=== PATIENT | female | born 1960 | race Caucasian/White ===

== ENCOUNTER 2017-07-10 10:37 | Inpatient (IN) | payer OTHER ==
[~2017-07-10] VITALS: Ht 162.6 cm; Wt 103.4 kg
[~2017-07-10 10:37] MED LIST: HYDROCHLOROTHIA25 MG PO; IMITREX100 MG PO; INDERAL LA80 MG PO; OMEPRAZOLE40 M1 PO; VITAMIN B-6100 MG PO; VITAMIN E400 UNI6 PO
[2017-07-10 11:13] VITALS: BP 130/70
[2017-07-10 16:54] VITALS: BP 140/67
[2017-07-10 19:20] VITALS: BP 134/74
[2017-07-11] VITALS (7 sets, daily range): BP systolic 108–139; BP diastolic 60–79
[2017-07-11 08:03] LABS: HEMATOCRIT 38.8 % (36.0-46.0); HEMOGLOBIN 12.8 G/DL (11.9-15.5); MCH 28.5 PG (29.0-34.0); MCV 86.4 FL (83-99); PLATELET COUNT 312 K/uL (156-360); RBC DIS.WIDTH-CV 13.9 % (11.8-14.6); RBC DIS.WIDTH-SD 43.8 % (39-53); RED BLOOD COUNT 4.49 M/uL (3.80-5.20); WHITE BLOOD COUNT 17.6 K/uL (4.1-10.2)
[2017-07-11 08:32] LABS: CHLORIDE 96 MEQ/L (99-109); CREATININE 0.6 MG/DL (0.6-1.3); GFR ESTIMATE (CALCULATED) > 59 mL/min/; GLUCOSE 164 mg/dL (70-99); POTASSIUM 4.1 MEQ/L (3.7-5.4); SODIUM 134 MEQ/L (136-147); UREA NITROGEN (BUN) 7 mg/dL (9-23)
[2017-07-12 03:30] VITALS: BP 112/65
[2017-07-12 06:32] LABS: HEMATOCRIT 37.5 % (36.0-46.0); HEMOGLOBIN 12.4 G/DL (11.9-15.5); MCH 29.2 PG (29.0-34.0); MCHC 33.1 G/DL (30.0-36.0); MCV 88.4 FL (83-99); PLATELET COUNT 295 K/uL (156-360); RBC DIS.WIDTH-CV 14.5 % (11.8-14.6); RBC DIS.WIDTH-SD 46.3 % (39-53); RED BLOOD COUNT 4.24 M/uL (3.80-5.20); WHITE BLOOD COUNT 12.5 K/uL (4.1-10.2)
[2017-07-12 06:57] LABS: CHLORIDE 99 MEQ/L (99-109); CREATININE 0.5 MG/DL (0.6-1.3); GFR ESTIMATE (CALCULATED) > 59 mL/min/; SODIUM 136 MEQ/L (136-147); UREA NITROGEN (BUN) 5 mg/dL (9-23)
[2017-07-12 06:58] LABS: GLUCOSE 113 mg/dL (70-99)
[2017-07-12 07:10] VITALS: BP 105/64
[2017-07-12 15:37] VITALS: BP 139/73
[2017-07-12 19:33] VITALS: BP 122/60
[2017-07-12 23:34] VITALS: BP 115/69
[2017-07-13 03:25] VITALS: BP 133/74
[2017-07-13 06:10] LABS: HEMATOCRIT 36.6 % (36.0-46.0); HEMOGLOBIN 11.7 G/DL (11.9-15.5); MCH 28.5 PG (29.0-34.0); MCV 89.3 FL (83-99); RBC DIS.WIDTH-CV 14.7 % (11.8-14.6); RBC DIS.WIDTH-SD 47.9 % (39-53); WHITE BLOOD COUNT 10.8 K/uL (4.1-10.2)
[2017-07-13 06:38] LABS: CHLORIDE 106 MEQ/L (99-109); CREATININE 0.6 MG/DL (0.6-1.3); GFR ESTIMATE (CALCULATED) > 59 mL/min/; GLUCOSE 106 mg/dL (70-99); POTASSIUM 3.7 MEQ/L (3.7-5.4); SODIUM 141 MEQ/L (136-147); UREA NITROGEN (BUN) 7 mg/dL (9-23)
[2017-07-13 06:40] LABS: PLAT.SUFFICIENCY ADEQUATE; PLATELET COUNT 289 K/uL (156-360)
[2017-07-13] MEDS ORDERED: ROXICODONE5 MG PO (08:58)
[2017-07-13] MEDS ORDERED: COLACE100 MG PO (08:58)
[2017-07-13 09:17] VITALS: BP 153/70
== END 2017-07-13 11:24 | disposition home or self-care (01) | DRG 336 ==
LOC: SDC 10:37 → 2EASTP 15:09 → 2SOUTH 15:09 → ENRESERV 15:11 → 2EASTP 16:30 → SDC 17:15 → 2EASTP 07-13 11:24
PROVIDERS: Surgery
DX: K43.0 Incisional hernia with obstruction, without gangrene (principal); K56.7 Ileus, unspecified; K66.0 Peritoneal adhesions (postprocedural) (postinfection); I10 Essential (primary) hypertension; K21.9 Gastro-esophageal reflux disease without esophagitis; G43.909 Migraine, unspecified, not intractable, without status migrainosus; E66.9 Obesity, unspecified; Z68.39 Body mass index [BMI] 39.0-39.9, adult; Z90.81 Acquired absence of spleen; Z88.2 Allergy status to sulfonamides
CPT/HCPCS: 80048; 85027; 94799; C1781; J0330; J0690; J1100; J1170; J1650; J2001; J2250; J2405; J2710; J3010; J3475